=== PATIENT | female | born 1980 | race Caucasian/White ===

== ENCOUNTER → 2022-11-12 14:18 | Outpatient (CLI) | payer OTHER, SELFPAY ==
--- NOTE | ~2022-11-12 | MMUS_ITS ---
EXAMINATION: MM diagnostic caleb BI w margo, US breast LT complete HISTORY: Left upper arm and axillary pain with breast swelling. TECHNIQUE: Additional 3-D tomosynthesis images of the breasts were performed and synthetic 2-D images were generated. CAD analysis was submitted and interpreted. High resolution complete left breast ult rasound was performed. COMPARISON: None BREAST PARENCHYMAL COMPOSITION: The breasts are heterogeneously dense, which may obscure small masses FINDINGS: MAMMOGRAPHIC FINDINGS: There are no suspicious masses, calcifications or architectural distortion in either breast to sugges t malignancy. ULTRASOUND: Complete US of all 4 quadrants of the left breast and retroareolar region was reviewed. At 2:00, 4 cm from the nipple there is an oval hypoechoic mass measuring 4 mm with parallel orientation, subtle po sterior shadowing and no internal vascularity, likely benign. At 9:00, 4 cm from the nipple there is a 3 mm complicated cyst. Near the nipple just lateral to the nipple there is an oval parallel oriente d hypoechoic mass with posterior acoustic enhancement measuring 9 x 10 x 6 mm. There is internal vasc ularity. IMPRESSION: 1. Complex left breast mass measuring 10 mm just lateral to the nipple. 2. Ultrasound-guided left breast biopsy recommended. BI-RADS category 4, suspicious findings. Reviewed, dictated and finalized at [facility]. IMPRESSION: 1. Complex left breast mass measuring 10 mm just lateral to the nipple. 2. Ultrasound-guided left breast biopsy recommended. BI-RADS category 4, suspicious findings.
== END ==
PROVIDERS: PCP Nurse Practitioner Obstetrics & Gynecology; Visit Provider Nurse Practitioner Obstetrics & Gynecology
DX: N63.20 Unspecified lump in the left breast, unspecified quadrant (principal); L29.9 Pruritus, unspecified; N64.4 Mastodynia; R92.8 Other abnormal and inconclusive findings on diagnostic imaging of breast
CPT/HCPCS: 76641; 77062; 77066; G0279

== ENCOUNTER 2022-11-24 12:30 | Outpatient (CLI) | payer OTHER, SELFPAY ==
--- NOTE | ~2022-11-24 | MMUS_ITS ---
EXAMINATION: US GUIDED NEEDLE BIOPSY DATE: 11/24/2022 14:29 CDT INDICATION: Complex 10 mm left breast mass just lateral to the nipple TECHNIQUE AND FINDINGS: The risks and potential benefits of the procedure were discussed with the patient, and written inform ed consent was obtained. Timeout procedure was performed. After sterile preparation of the left breas t, 1% lidocaine was utilized for local anesthesia. A 14G spring-loaded biopsy gun needle was advanced to the edge of the region of interest from an ante romedial approach utilizing sonographic guidance. A total of three tissue core samples were obtained through the lesion. An Inrad tissue marker clip was then placed at the biopsy site. Hemostasis was achieved. The biopsy procedure was complicated by biopsy penetration of the skin with a small open skin lesion lateral to the left areola. The patient was informed of the complication and a recommendation was mad e for plastic surgery consultation. The patient did not have a plastic surgeon. I recommended Dr. Francisco Mazariegos. With the patient's consent I contacted Dr. Mazariegos by telephone immediately after the proced ure and made arrangements for the patient to be able to be seen at his office the same afternoon. A sterile bandage was applied. The patient tolerated procedure well. The patient was given verbal instructions prior to departing fr om the department. A two view mammogram was performed to document tissue marker clip placement. The t issue samples were submitted to surgical pathology for histologic analysis. IMPRESSION: 1. Ultrasound guided biopsy of left lateral periareolar breast mass with biopsy marker placement, com plicated by biopsy needle penetration of the skin and a small open skin lesion lateral to the left ar eola. Arrangements were made for patient consultation with plastic surgeon Dr. Maury Mazariegos same day as the biopsy procedure. Please refer to pathology report for histologic analysis. Reviewed, dictated and finalized at [facility]. Reviewed, dictated and finalized at [facility]. IMPRESSION: 1. Ultrasound guided biopsy of left lateral periareolar breast mass with biopsy marker placement, complicated by biopsy needle penetration of the skin and a s mall open skin lesion lateral to the left areola. Arrangements were made for patient consultation with plastic surgeon Dr. Maury Mazariegos same day as the biopsy procedure. Please refer to pathology report for histologic analysis.
== END 2022-11-24 12:31 | disposition home or self-care (01) ==
PROVIDERS: PCP Nurse Practitioner Obstetrics & Gynecology; Visit Provider Nurse Practitioner Adult Health
DX: N63.25 Unspecified lump in the left breast, overlapping quadrants (principal); N60.22 Fibroadenosis of left breast
CPT/HCPCS: 19083; 88305; A4648